=== PATIENT | female | born 1995 | race Caucasian/White ===

== ENCOUNTER 2016-04-06 15:29 | Emergency (ER) | payer MEDICAID | END 2016-04-06 18:31 | disposition left against medical advice (07) | LOC: D.ER 15:29 | DX: R05 Cough (principal) ==

== ENCOUNTER → 2016-07-08 00:48 | Outpatient (CLI) | payer MEDICAID ==
[2016-07-08 01:37] LABS: APPEARANCE HAZY (CLEAR); BILIRUBIN NEGATIVE (NEGATIVE); COLOR YELLOW (YELLOW); GLUCOSE NEGATIVE (NEGATIVE); KETONE SMALL mg/dL (NEGATIVE); LEUKOCYTE ESTERASE NEGATIVE (NEGATIVE); NITRITE NEGATIVE (NEGATIVE); PROTEIN NEGATIVE (NEGATIVE); SPECIFIC GRAVITY 1.015 (1.005-1.020); UROBILINOGEN NORMAL (NORMAL)
== END ==
LOC: D.LDO 00:48
PROVIDERS: Obstetrics & Gynecology
DX: Z34.02 Encounter for supervision of normal first pregnancy, second trimester (principal); Z3A.19 19 weeks gestation of pregnancy; R10.9 Unspecified abdominal pain

== ENCOUNTER → 2016-07-31 13:52 | Outpatient (CLI) | payer MEDICAID ==
[2016-07-31 14:20] LABS: APPEARANCE CLOUDY (CLEAR); COLOR YELLOW (YELLOW)
[2016-07-31 14:21] LABS: BILIRUBIN NEGATIVE (NEGATIVE); GLUCOSE NEGATIVE (NEGATIVE); KETONE NEGATIVE (NEGATIVE); LEUKOCYTE ESTERASE 1+ (NEGATIVE); NITRITE NEGATIVE (NEGATIVE); PROTEIN 1+ mg/dL (NEGATIVE); UROBILINOGEN NORMAL (NORMAL)
[2016-07-31 14:40] LABS: BACTERIA MODERATE /hpf (NONE SEEN); MUCUS <1+ /lpf (NONE SEEN); RED CELLS - URINE 0-5 /hpf (0-5)
== END | disposition home or self-care (01) ==
LOC: D.LDO 13:52
PROVIDERS: Obstetrics & Gynecology
DX: O26.853 Spotting complicating pregnancy, third trimester (principal); Z3A.39 39 weeks gestation of pregnancy

== ENCOUNTER 2016-08-04 05:59 | Inpatient (IN) | payer MEDICAID ==
[~2016-08-04] VITALS: Ht 167.6 cm; Wt 108.4 kg
[2016-08-04] VITALS (12 sets, daily range): BP systolic 90–144; BP diastolic 38–81; Ht 167.6 cm; Wt 108.4 kg
[2016-08-04] MEDS ORDERED: AMBIEN10 MG PO (06:16)
[2016-08-04] MEDS ORDERED: PROTONIX40 MG PO (06:16)
[2016-08-04 06:42] LABS: HEMATOCRIT 37.2 % (36.0-48.0); HEMOGLOBIN 12.5 g/dL (12-16); MCH 32.6 pg (26.0-34.0); MCHC 33.6 g/dL (31.0-37.0); MCV 97.1 fL (80.0-100.0); MEAN PLATELET VOLUME 11.2 fL (7.4-10.4); RBC 3.83 10x6/uL (4.00-5.40); RDW 13.6 % (11.5-14.5); WBC 13.8 10x3/uL (4.8-10.8)
[2016-08-04 06:54] LABS: UDS - AMPHET NEGATIVE QUAL (NEGATIVE); UDS - BARB NEGATIVE QUAL (NEGATIVE); UDS - BENZO NEGATIVE QUAL (NEGATIVE); UDS - COCAINE NEGATIVE QUAL (NEGATIVE); UDS - METH NEGATIVE QUAL (NEGATIVE); UDS - OPIATE POSITIVE QUAL (NEGATIVE); UDS - PCP NEGATIVE QUAL (NEGATIVE); UDS - THC POSITIVE QUAL (NEGATIVE)
[2016-08-04 07:07] LABS: APPEARANCE SLT CLOUDY (CLEAR); BILIRUBIN NEGATIVE (NEGATIVE); COLOR YELLOW (YELLOW); GLUCOSE NEGATIVE (NEGATIVE); KETONE NEGATIVE (NEGATIVE); LEUKOCYTE ESTERASE 2+ (NEGATIVE); NITRITE NEGATIVE (NEGATIVE); PROTEIN TRACE mg/dL (NEGATIVE); SPECIFIC GRAVITY 1.025 (1.005-1.020); UROBILINOGEN NORMAL (NORMAL)
[2016-08-04 07:08] LABS: BACTERIA MODERATE /hpf (NONE SEEN); MUCUS >1+ /lpf (NONE SEEN); WHITE CELLS - URINE 25-50 /hpf (0-5)
[2016-08-04 15:17] LABS: BASOPHILS 0.2 % (0-2); EOSINOPHILS 2.2 % (0-7); HEMATOCRIT 31.3 % (36.0-48.0); HEMOGLOBIN 10.5 g/dL (12-16); IMMATURE GRANULOCYTES 0.3 % (0-5); LYMPHOCYTES 23.2 % (15-50); MCH 32.7 pg (26.0-34.0); MCHC 33.5 g/dL (31.0-37.0); MCV 97.5 fL (80.0-100.0); MEAN PLATELET VOLUME 10.9 fL (7.4-10.4); MONOCYTES 6.1 % (2-11); RBC 3.21 10x6/uL (4.00-5.40); RDW 13.4 % (11.5-14.5); WBC 14.4 10x3/uL (4.8-10.8)
[2016-08-04 15:32] LABS: PLATELET COUNT 158 10x3/uL (130-400)
[2016-08-05 00:10] VITALS: BP 100/64
[2016-08-05 05:16] VITALS: BP 85/48
[2016-08-05 06:15] LABS: RAPID PLASMA REAGIN Non Reactive (Non Reactive)
[2016-08-05 07:30] VITALS: BP 105/61
[2016-08-05 07:32] LABS: BASOPHILS 0.2 % (0-2); EOSINOPHILS 3.1 % (0-7); HEMATOCRIT 36.3 % (36.0-48.0); HEMOGLOBIN 11.9 g/dL (12-16); IMMATURE GRANULOCYTES 0.3 % (0-5); LYMPHOCYTES 22.6 % (15-50); MCH 32.1 pg (26.0-34.0); MCHC 32.8 g/dL (31.0-37.0); MCV 97.8 fL (80.0-100.0); MEAN PLATELET VOLUME 10.5 fL (7.4-10.4); MONOCYTES 7.1 % (2-11); NEUTROPHILS 66.7 % (40-80); PLATELET COUNT 180 10x3/uL (130-400); RBC 3.71 10x6/uL (4.00-5.40); RDW 13.5 % (11.5-14.5); WBC 14.3 10x3/uL (4.8-10.8)
[2016-08-05 16:08] VITALS: BP 123/68
[2016-08-05 20:28] VITALS: BP 146/81
[2016-08-05 23:30] VITALS: BP 159/88
[2016-08-06 03:56] VITALS: BP 139/76
--- NOTE | 2016-08-06 08:08 | OP ---
PATIENT NAME: ARTI CHICAS MEDICAL RECORD: [id number] :96 [facility]ATION:[id number] ADMISSION DATE:08/04/16 SURGEON: CHAN VELASQUEZ MD DATE OF OPERATION: 08/04/2016 PREOPERATIVE DIAGNOSIS: intolerance to labor. POSTOPERATIVE DIAGNOSIS: intolerance to labor. PROCEDURE: A primary low transverse section. SURGEON: Chan Velasquez MD ESTIMATED BLOOD LOSS: 1000 cc. INTRAVENOUS FLUIDS: Per anesthesia records. FINDINGS: 1. Nuchal cord times 2 and body cord times 1. 2. Viable infant delivered atraumatically. 3. Normal adnexa bilaterally. SPECIMENS: Placenta and cord for gases. COMPLICATIONS: None apparent. PROCEDURE IN DETAIL: The patient was taken to the operating room where epidural anesthesia was achieved without difficulty. The patient was then prepped and draped in normal sterile fashion in the dorsal supine position. SCDs were on and functioning normally. Laboy catheter had been placed and was draining freely. Pfannenstiel skin incision was made, extended downward through the underlying subcutaneous fat to the level of the fascia, which was then excised in the midline with the scalpel and dissected bilaterally using the De León scissors. The superior and inferior aspects of the fascial incision were then grasped with Severiano clamps times 2, tented upward, and sharply dissected from the underlying rectus muscle using the Bovie cautery and the De León scissors. The rectus muscles were then bluntly in the midline. Pyramidalis muscle was in the midline using the Bovie cautery. The peritoneum was entered bluntly at the superior aspect of the incision. The peritoneal incision was extended. A bladder flap was then created across the lower uterine segment by excising the anterior leaf of the broad ligament using the Metzenbaum scissors. The lower uterine segment was then grasped with 2 Allis clamps, tented upward away from the baby's head and the uterus was entered using a scalpel. The membranes were still intact and they were disrupted with an Allis clamp and the 's head was found to be extended and a vacuum was placed on the occiput to correct head flexion. This resulted in immediate delivery of the head without trauma or traction on the neck. Vacuum was then immediately removed. Nuchal cord times 2 was identified as well as the body cord. The was delivered atraumatically. The cords were reduced. The was bulb suctioned. The cord was clamped times 2 and cut. The was handed to the awaiting nursery team. At this point, placenta was manually removed from the uterus. The uterus was exteriorized, cleared of all clots and debris. The uterine incision was repaired with 0 Vicryl in a running locked fashion times 2. Posterior cul-de-sac was then thoroughly irrigated and the uterus was placed into the pelvis. A small area of bleeding was noted in OPERATIVE REPORT [id number] ARTI CHICAS N the midline of the incision, which was oversewn with 0 Vicryl in a [id number] fashion with good hemostasis noted. The anterior cul-de-sac was then thoroughly irrigated. Several small bleeders on the peritoneal edge were identified and treated with Bovie cautery. Counts were correct times 2. The fascia was then repaired with 0 loop PDS times 1 and the skin repaired with josue. The patient tolerated the procedure well, transferred to postanesthesia recovery stable without incident. TRANSINT:[id number] Voice Confirmation ID: [id number] DOCUMENT ID: [id number] CHAN VELASQUEZ MD at 0808 CC: [id number] DICTATION DATE: 08/05/16722 PAY STATION COLLECTOR: 08/05/16 1547 ADM IN [place] [id number] [place] [address]
[2016-08-06] MEDS ORDERED: HYDROCODONE-APA1 TAB PO (11:28)
[2016-08-06] MEDS ORDERED: IBUPROFEN600 MG PO (11:28)
[2016-08-08 15:08] LABS: UDSC - AMPHET Negative ng/mL (Cutoff=1000); UDSC - BARB Negative ng/mL (Cutoff=300); UDSC - BENZO Negative ng/mL (Cutoff=300); UDSC - COC Negative ng/mL (Cutoff=300); UDSC - METH Negative ng/mL (Cutoff=300); UDSC - OPIATES Negative ng/mL (Cutoff=300); UDSC - PCP Negative ng/mL (Cutoff=25); UDSC - PROPOXY Negative ng/mL (Cutoff=300); UDSC - THC Positive (Cutoff=50)
== END 2016-08-06 16:09 | disposition home or self-care (01) | DRG 766 ==
LOC: D.LD 05:59 → D.WS 09:16
PROVIDERS: ADMIT Obstetrics & Gynecology
PROC: 10D00Z1 Extraction of Products of Conception, Low, Open Approach (ICD-10-PCS; principal; 2016-08-04 08:00)
DX: O99.214 Obesity complicating childbirth (principal); Z3A.40 40 weeks gestation of pregnancy; Z37.0 Single live birth; O69.81X0 Labor and delivery complicated by cord around neck, without compression, not applicable or unspecified; O99.334 Smoking (tobacco) complicating childbirth; O99.324 Drug use complicating childbirth; F12.90 Cannabis use, unspecified, uncomplicated

== ENCOUNTER 2016-08-23 21:27 | Emergency (ER) | payer MEDICAID ==
[2016-08-04 06:16] VITALS: BMI 38.6
[~2016-08-23 21:27] MED LIST: AMBIEN10 MG PO; HYDROCODONE-APA1 TAB PO; IBUPROFEN600 MG PO; PROTONIX40 MG PO
[2016-08-23 22:54] LABS: BASOPHILS 0.3 % (0-2); EOSINOPHILS 9.4 % (0-7); HEMATOCRIT 40.1 % (36.0-48.0); HEMOGLOBIN 13.1 g/dL (12-16); IMMATURE GRANULOCYTES 0.1 % (0-5); LYMPHOCYTES 25.2 % (15-50); MCH 31.6 pg (26.0-34.0); MCHC 32.7 g/dL (31.0-37.0); MCV 96.9 fL (80.0-100.0); MEAN PLATELET VOLUME 9.5 fL (7.4-10.4); MONOCYTES 6.1 % (2-11); NEUTROPHILS 58.9 % (40-80); RBC 4.14 10x6/uL (4.00-5.40); RDW 13.3 % (11.5-14.5); WBC 14.2 10x3/uL (4.8-10.8)
[2016-08-23 22:55] LABS: PLATELET COUNT 313 10x3/uL (130-400)
[2016-08-23 23:02] LABS: INR 0.92 (0.85-1.17); PROTIME 12.2 SECONDS (11.6-15.0)
[2016-08-23 23:08] LABS: ALBUMIN 3.2 g/dL (3.4-5.0); ALKALINE PHOSPHATASE 204 U/L (46-116); ALT (SGPT) 44 U/L (10-68); CALC OSMOLALITY 276 mosm/kg (275-300); CALCIUM 9.1 mg/dL (8.5-10.1); CARBON DIOXIDE 31.5 mmol/L (21.0-32.0); CHLORIDE - SERUM 105 mmol/L (98-107); CREATININE - SERUM 0.8 mg/dL (0.6-1.3); GLUCOSE 84 mg/dL (74-106); POTASSIUM - SERUM 4.3 mmol/L (3.5-5.1); PROTEIN - SERUM 6.7 g/dL (6.4-8.2); SODIUM 140 mmol/L (136-145); UREA NITROGEN 11 mg/dL (7-18); eGFR NON AFRICAN AMERICAN > 90 mL/min (90-120)
[2016-08-23 23:37] LABS: APPEARANCE CLEAR (CLEAR); BILIRUBIN NEGATIVE (NEGATIVE); COLOR STRAW (YELLOW); GLUCOSE NEGATIVE (NEGATIVE); KETONE NEGATIVE (NEGATIVE); LEUKOCYTE ESTERASE NEGATIVE (NEGATIVE); NITRITE NEGATIVE (NEGATIVE); PROTEIN NEGATIVE (NEGATIVE); UROBILINOGEN NORMAL (NORMAL)
[2016-08-23 23:45] LABS: UDS - AMPHET NEGATIVE QUAL (NEGATIVE); UDS - BARB NEGATIVE QUAL (NEGATIVE); UDS - BENZO POSITIVE QUAL (NEGATIVE); UDS - COCAINE NEGATIVE QUAL (NEGATIVE); UDS - METH NEGATIVE QUAL (NEGATIVE); UDS - OPIATE POSITIVE QUAL (NEGATIVE); UDS - PCP NEGATIVE QUAL (NEGATIVE); UDS - THC NEGATIVE QUAL (NEGATIVE)
== END 2016-08-24 01:04 | disposition home or self-care (01) ==
LOC: D.ER 21:27
PROVIDERS: Nurse Practitioner Family
DX: S40.012A Contusion of left shoulder, initial encounter (principal); S60.212A Contusion of left wrist, initial encounter; S40.011A Contusion of right shoulder, initial encounter; S60.211A Contusion of right wrist, initial encounter; Y04.2XXA Assault by strike against or bumped into by another person, initial encounter; Y93.89 Activity, other specified; Y92.89 Other specified places as the place of occurrence of the external cause; S51.812A Laceration without foreign body of left forearm, initial encounter

== ENCOUNTER 2018-04-23 07:57 | Emergency (ER) | payer MEDICAID ==
[2018-04-23 08:08] VITALS: Ht 167.6 cm
[2018-04-23] MEDS ORDERED: NAPROSYN500 MG PO (09:06)
[2018-04-23 09:20] VITALS: BP 127/74
== END 2018-04-23 09:21 | disposition home or self-care (01) ==
LOC: D.ER 07:57
DX: S80.01XA Contusion of right knee, initial encounter (principal); W18.30XA Fall on same level, unspecified, initial encounter; Y93.89 Activity, other specified; Y92.019 Unspecified place in single-family (private) house as the place of occurrence of the external cause; S83.91XA Sprain of unspecified site of right knee, initial encounter; F17.200 Nicotine dependence, unspecified, uncomplicated